=== PATIENT | male | born 1980 | race Caucasian/White ===

== ENCOUNTER 2021-06-19 11:56 | Emergency (ER) | payer OTHER ==
[~2021-06-19 11:56] MED LIST: BACTRIM DS TAB1 EACH PO; TRAMADOL HCL50 MG PO
[2021-06-19 12:37] LABS: BASOPHIL 0.8 % (0-2); EOSINOPHIL 0.5 % (0-5); HCT 42.9 % (42.0-52.0); LYMPHOCYTE 8.3 % (15-48); MCH 28.1 pg (25.0-31.0); MCHC 32.6 g/dL (32.0-36.0); MONOCYTE 11.1 % (0-12); MPV 10.4 fL (6.0-9.5); NEUTROPHIL 78.9 % (41-80); NRBC 0; PLT 215 K/uL (150-400); RBC 4.99 M/uL (4.70-6.00); RDW 13.4 % (11.5-14.0); WBC 7.5 K/uL (4.0-10.5)
[2021-06-19 12:47] LABS: INR 1.16 (0.9-1.2); PROTHROMBIN TIME 14.2 SECONDS (11.8-13.4); PTT 28.9 SECONDS (24.4-34.7)
[2021-06-19 13:04] LABS: ALBUMIN 3.6 g/dL (3.4-5.0); BILIRUBIN - TOTAL 0.7 mg/dL (0.2-1.0); BUN/CREAT RATIO (CALC) 9.6 RATIO; CREATININE 0.94 mg/dL (0.67-1.17); GLOBULIN (CALCULATION) 3.5 g/dL; POTASSIUM 3.8 mmol/L (3.5-5.1); TOTAL PROTEIN 7.1 g/dL (6.4-8.2)
[2021-06-19 14:32] LABS: INFLUENZA A NAA NEGATIVE (NEGATIVE)
[2021-06-19 14:35] LABS: CORONAVIRUS 2019 SARS-COV-2 POSITIVE (NEGATIVE)
[2021-06-19] MEDS ORDERED: VENTOLIN HFA IN18 GM INH (14:51)
[2021-06-19] MEDS ORDERED: ZPAK PO (14:51)
[2021-06-19] MEDS ORDERED: ONDANSETRON ODT4 MG PO (14:51)
[2021-06-19] MEDS ORDERED: MEDROL 4MG DOSEP4 MG PO (14:51)
== END 2021-06-19 15:20 | disposition home or self-care (01) ==
LOC: FER 11:56
PROVIDERS: Emergency Medicine; Nurse Practitioner Family
DX: U07.1 COVID-19 (principal)
CPT/HCPCS: 36415; 71045; 80053; 84484; 85025; 85610; 85730; 93005; J1100; J1885; J2405; J7030; U0002

== ENCOUNTER 2021-09-18 20:54 | Emergency (ER) | payer SELFPAY ==
[~2021-09-18 20:54] MED LIST changes: +MEDROL 4MG DOSEP4 MG PO; +ONDANSETRON ODT4 MG PO; +VENTOLIN HFA IN18 GM INH; +ZPAK PO
[2021-09-18 23:20] LABS: BASOPHIL 0.4 % (0-2); EOSINOPHIL 0.3 % (0-5); HCT 45.3 % (42.0-52.0); HGB 14.9 g/dl (13.2-18.0); LYMPHOCYTE 10.9 % (15-48); MCH 28.3 pg (25.0-31.0); MCHC 32.9 g/dL (32.0-36.0); MONOCYTE 6.3 % (0-12); MPV 10.2 fL (6.0-9.5); NEUTROPHIL 81.9 % (41-80); NRBC 0; PLT 267 K/uL (150-400); RBC 5.27 M/uL (4.70-6.00); RDW 13.7 % (11.5-14.0); WBC 15.9 K/uL (4.0-10.5)
[2021-09-18 23:43] LABS: ALBUMIN 4.2 g/dL (3.4-5.0); BILIRUBIN - TOTAL 1.1 mg/dL (0.2-1.0); BUN/CREAT RATIO (CALC) 12.5 RATIO; CREATININE 1.04 mg/dL (0.67-1.17); GLOBULIN (CALCULATION) 3.6 g/dL; POTASSIUM 3.7 mmol/L (3.5-5.1); TOTAL PROTEIN 7.8 g/dL (6.4-8.2)
[2021-09-19 00:10] LABS: CORONAVIRUS 2019 SARS-COV-2 NEGATIVE (NEGATIVE); INFLUENZA A NAA NEGATIVE (NEGATIVE)
[2021-09-19] MEDS ORDERED: ONDANSETRON ODT4 MG PO (01:05)
== END 2021-09-19 01:37 | disposition home or self-care (01) ==
LOC: FER 20:54
PROVIDERS: Emergency Medicine
DX: J06.9 Acute upper respiratory infection, unspecified (principal); R42 Dizziness and giddiness; Z20.822 Contact with and (suspected) exposure to COVID-19; Z28.311 Partially vaccinated for COVID-19
CPT/HCPCS: 36415; 80053; 84484; 85025; 85379; 93005; J1885; J2405; J7030; U0002

== ENCOUNTER 2022-01-18 08:06 | Emergency (ER) | payer OTHER ==
[2022-01-18 09:42] LABS: BASOPHIL 0.4 % (0-2); EOSINOPHIL 0.1 % (0-5); HCT 42.5 % (42.0-52.0); HGB 14.1 g/dl (13.2-18.0); LYMPHOCYTE 7.9 % (15-48); MCH 28.3 pg (25.0-31.0); MCHC 33.2 g/dL (32.0-36.0); MCV 85.2 fL (78.0-100.0); MONOCYTE 6.7 % (0-12); MPV 10.5 fL (6.0-9.5); NEUTROPHIL 84.6 % (41-80); NRBC 0; PLT 241 K/uL (150-400); RBC 4.99 M/uL (4.70-6.00); RDW 13.5 % (11.5-14.0); WBC 14.9 K/uL (4.0-10.5)
[2022-01-18 10:21] LABS: BUN/CREAT RATIO (CALC) 6.8 RATIO; CREATININE 0.88 mg/dL (0.67-1.17); POTASSIUM 3.8 mmol/L (3.5-5.1)
[2022-01-18 11:31] LABS: ALBUMIN 3.6 g/dL (3.4-5.0); BILIRUBIN - DIRECT 0.2 mg/dL (0.00-0.20); BILIRUBIN - TOTAL 1.1 mg/dL (0.2-1.0); GLOBULIN (CALCULATION) 3.7 g/dL; TOTAL PROTEIN 7.3 g/dL (6.4-8.2)
[2022-01-18 11:44] LABS: LACTIC ACID 0.9 mmol/L (0.4-1.9)
[2022-01-18] MEDS ORDERED: IMODIUM2 MG PO (12:34)
[2022-01-18] MEDS ORDERED: AMOX TR-K CLV1 EAC4 PO (12:34)
[2022-01-18] MEDS ORDERED: ONDANSETRON ODT4 MG PO (12:34)
== END 2022-01-18 13:15 | disposition home or self-care (01) ==
LOC: FER 08:06
PROVIDERS: Emergency Medicine
DX: L03.116 Cellulitis of left lower limb (principal); L03.115 Cellulitis of right lower limb; K52.9 Noninfective gastroenteritis and colitis, unspecified; Z20.822 Contact with and (suspected) exposure to COVID-19; Z28.311 Partially vaccinated for COVID-19; Z91.048 Other nonmedicinal substance allergy status
CPT/HCPCS: 36415; 71046; 80048; 80076; 83605; 84145; 85025; 87040; J0295; Q9967; U0002